=== PATIENT | female | born 2000 | race Native Hawaiian/Other Pacific Islander ===

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

== ENCOUNTER 2019-11-11 18:54 | Outpatient (CLI) | payer OTHER | END 2019-11-11 18:56 | disposition short-term general hospital (02) | LOC: AMB 18:54 | DX: R51 Headache (principal); V89.2XXA Person injured in unspecified motor-vehicle accident, traffic, initial encounter; Y92.89 Other specified places as the place of occurrence of the external cause | CPT/HCPCS: A0425; A0429 ==

== ENCOUNTER 2019-11-11 19:12 | Emergency (ER) | payer OTHER ==
[~2019-11-11] VITALS: Ht 162.6 cm; Wt 54.2 kg
[2019-11-11 22:08] VITALS: BP 110/61; TEMP 98.1
== END 2019-11-11 22:11 | disposition home or self-care (01) ==
LOC: ED 19:12
DX: S09.8XXA Other specified injuries of head, initial encounter (principal); S06.0X0A Concussion without loss of consciousness, initial encounter; V53.5XXA Driver of pick-up truck or van injured in collision with car, pick-up truck or van in traffic accident, initial encounter
CPT/HCPCS: 96360; 96365; 96375; 99284; J1885; J2405